=== PATIENT | male | born 1995 | race African-American/Black ===

== ENCOUNTER 2017-06-29 15:37 | Emergency (ER) | payer OTHER ==
[~2017-06-29] VITALS: Ht 170.2 cm; Wt 66.3 kg
[~2017-06-29 15:37] MED LIST: AUGMENTIN875 MG PO; PREDNISONE10 MG PO; ZANTAC150 MG PO
[2017-06-29] MEDS ORDERED: MOTRIN800 MG PO (16:51)
[2017-06-29] MEDS ORDERED: PEN-VEE K,VEET500 MG PO (16:51)
[2017-06-29 17:34] VITALS: BP 138/63
== END 2017-06-29 17:35 | disposition home or self-care (01) ==
LOC: EME 15:37
PROC: 3E0T3BZ Introduction of Anesthetic Agent into Peripheral Nerves and Plexi, Percutaneous Approach (ICD-10-PCS; principal; 2017-06-29)
DX: K08.89 Other specified disorders of teeth and supporting structures (principal)
CPT/HCPCS: 99281; 99283